=== PATIENT | male | born 1955 | race Caucasian/White ===

== ENCOUNTER 2024-03-06 23:01 | Observation (INO) | payer MEDICARE ==
[2024-03-07 01:40] VITALS: BMI 29.0
[2024-03-07] MEDS ORDERED: Ondansetron PF 4 MG/2 ML Vial IVP PRN (02:44)
[2024-03-07] MEDS ORDERED: Acetaminophen 325 MG TAB PO PRN (02:44)
[2024-03-07] MEDS ORDERED: Calcium Carbonate 500 MG ChewTAB PO PRN (02:44)
[2024-03-07] MEDS ORDERED: Ondansetron ODT 4 MG TAB PO PRN (02:44)
[2024-03-07 03:48] VITALS: TEMP 97.3
[2024-03-07 05:00] LABS: #Basophils 0.05 10x3/uL (0.0-0.2); %Basophils 0.8 % (0.0-1.0); %Eosinophils 5.7 % (0.0-10.0); %Lymphocytes 40.2 % (21.0-51.0); Hematocrit 36.5 % (42.0-52.0); Hemoglobin 12.1 g/dL (14.0-18.0); Mean Corpuscular HGB CONC 33.2 g/dL (32.0-36.0); Mean Corpuscular Hemoglobin 30.6 pg (27.0-31.0); Mean Corpuscular Volume 92.2 fL (78.0-98.0); Mean Platelet Volume 9.3 fL (7.4-10.4); Platelet Count 180 10x3/uL (130-400); Red Blood Cell (RBC) Count 3.96 mill/uL (4.70-6.10)
[2024-03-07 05:13] LABS: Anion Gap 11 mmol/L (10-20); BUN (Urea Nitrogen) 20 mg/dL (8.4-25.7); Calc. Creatinine Clearance 112 mL/min (70-130); Calcium 8.6 mg/dL (7.8-10.44); Carbon Dioxide 27 mmol/L (23-31); Cardiac Risk 4.7 (Less than 4.5); Chloride 107 mmol/L (98-107); Cholesterol 168 mg/dl (< 200 Desired); Estimated GFR 93; Glucose 99 mg/dL (80-115); HDL Cholesterol 36 mg/dL (>60 Neg Risk); LDL Cholesterol, Calculated 105 mg/dL; Potassium 4.2 mmol/L (3.5-5.1); Sodium 141 mmol/L (136-145); Triglycerides 135 mg/dL (Less than 150)
[2024-03-07 05:47] LABS: Troponin I 0.087 ng/mL (< 0.028)
[2024-03-07] MEDS: Aspirin Chewable 81 MG TAB PO SCH (08:58)
[2024-03-07] MEDS ORDERED: Communication Order-Pharmacy FS SCH (14:00)
[2024-03-07] MEDS ORDERED: Adenosine 6 mg (2 mL) VIAL ONE (14:14)
[2024-03-07] MEDS ORDERED: Verapamil 5 MG/2 ML VIAL ONE (14:15)
[2024-03-07] MEDS ORDERED: Nitroglycerin 50 MG/250 ML BOT 250 ML ONE (14:15)
[2024-03-07] MEDS ORDERED: Heparin 10,000 UNITS/ 10 ML VIAL ONE (14:15)
[2024-03-07 14:25] LABS: Troponin I 0.036 ng/mL (< 0.028)
[2024-03-07] MEDS ORDERED: Midazolam HCl 2 mg/2 ml Vial ONE (15:00)
[2024-03-07] MEDS ORDERED: fentaNYL 50 mcg/mL 1 mL Vial ONE (15:00)
[2024-03-07] MEDS ORDERED: Atropine Sulfate 1 mg/10 ml Syringe ONE (15:00)
[2024-03-07] MEDS ORDERED: Nitroglycerin 0.4 MG TAB (25 Tab Bottle) SL PRN (15:29)
[2024-03-07] MEDS ORDERED: Sodium Chloride 0.9% 200 ML IV PRN (15:29)
[2024-03-07] MEDS ORDERED: Acetaminophen/Codeine 30-300mg Tablet PO PRN ×2 (15:29)
[2024-03-07] MEDS: Sodium Chloride 0.9% 1,000 ML IV SCH (16:34)
[2024-03-07 18:53] VITALS: BP 128/72
== END 2024-03-07 19:40 | disposition home or self-care (01) ==
LOC: OBS 03-07 → UNDOADMOB 03-07 00:39
PROVIDERS: ADMIT Student in an Organized Health Care Education/Training Program; ATTEND Internal Medicine
PROC: 4A023N7 Measurement of Cardiac Sampling and Pressure, Left Heart, Percutaneous Approach (ICD-10-PCS; principal; 2024-03-07)
DX: R55 Syncope and collapse (principal); R79.89 Other specified abnormal findings of blood chemistry; Z79.82 Long term (current) use of aspirin
CPT/HCPCS: 80048; 80061; 84484 ×2; 85025; 93005; 93458; C1769; C1894; G0378; J1644; J2250; J3010; 36415; 93010; 99152; J0153; J0461